=== PATIENT | female | born 1975 | race Caucasian/White ===

== ENCOUNTER → 2017-06-05 15:45 | Outpatient (CLI) | payer MEDICAID ==
[2013-12-07 08:34] VITALS: BMI 34.7
[~2017-06-05 15:45] MED LIST: VOLTAREN25 MG PO
== END | disposition home or self-care (01) ==
LOC: D.CT 15:45
DX: R31.9 Hematuria, unspecified (principal); R10.30 Lower abdominal pain, unspecified

== ENCOUNTER → 2019-04-22 08:00 | Outpatient (CLI) | payer MEDICAID ==
[2013-12-07 08:34] VITALS: BMI 34.7
== END | disposition home or self-care (01) ==
LOC: D.MAMMO 08:00
PROVIDERS: ATTEND Nurse Practitioner Family
DX: Z12.31 Encounter for screening mammogram for malignant neoplasm of breast (principal)

== ENCOUNTER → 2019-05-19 09:00 | Outpatient (CLI) | payer MEDICAID ==
[2013-12-07 08:34] VITALS: BMI 34.7
== END | disposition home or self-care (01) ==
LOC: D.MAMMO 09:00
PROVIDERS: ATTEND Nurse Practitioner Family
DX: R92.8 Other abnormal and inconclusive findings on diagnostic imaging of breast (principal)

== ENCOUNTER → 2019-06-07 07:20 | Outpatient (CLI) | payer MEDICAID ==
[2013-12-07 08:34] VITALS: BMI 34.7
== END | disposition home or self-care (01) ==
LOC: D.US 07:20
PROVIDERS: ATTEND Nurse Practitioner Family
DX: R92.8 Other abnormal and inconclusive findings on diagnostic imaging of breast (principal)

== ENCOUNTER → 2020-11-08 15:56 | Outpatient (CLI) | payer MEDICAID ==
[2013-12-07 08:34] VITALS: BMI 34.7
[2020-11-08 16:30] LABS: BASOPHILS 0.5 % (0-2); EOSINOPHILS 1.8 % (0-7); HEMOGLOBIN 13.1 g/dL (12-16); IMMATURE GRANULOCYTES 0.3 % (0-5); LYMPHOCYTE ABS# 2.85 10x3/uL (1.18-3.74); LYMPHOCYTES 47.1 % (15-50); MCH 29.4 pg (26.0-34.0); MCHC 33.6 g/dL (31.0-37.0); MCV 87.4 fL (80.0-100.0); MEAN PLATELET VOLUME 10.5 fL (7.4-10.4); MONOCYTES 6.4 % (2-11); NEUTROPHIL ABS# 2.65 10x3/uL (1.56-6.13); NEUTROPHILS 43.9 % (40-80); PLATELET COUNT 73 10x3/uL (130-400); RBC 4.46 10x6/uL (4.00-5.40); WBC 6.1 10x3/uL (4.8-10.8)
[2020-11-08 17:11] LABS: % SATURATION 22 % (15-55); IRON 79 ug/dl (35-150); TOTAL IRON BIND CAPACITY 348 ug/dl (260-445); UNSAT IRON BIND CAPACITY 269 ug/dl (150-375)
[2020-11-08 18:01] LABS: PLATELET ESTIMATE DECREASED
== END | disposition home or self-care (01) ==
LOC: D.LAB 15:56
PROVIDERS: ATTEND Internal Medicine Hematology & Oncology
DX: R58 Hemorrhage, not elsewhere classified (principal); D69.49 Other primary thrombocytopenia

== ENCOUNTER 2020-11-13 05:15 | Day surgery (SDC) | payer BC ==
--- NOTE | 2020-11-12 12:42 | NUR ---
CONFIRMED PT APPT FOR 11/13/20 THINNERS: NO NPO: VERBALIZES NOTHING AFTER MIDNIGHT EXCEPT MORNING MEDS WITH SIP OF WATER TYPE INSPECTOR: YES ARRIVAL TIME: 0530
[~2020-11-13] VITALS: Ht 175.3 cm; Wt 104.5 kg
[2020-11-13 05:39] LABS: BASOPHILS 0.3 % (0-2); EOSINOPHILS 2.7 % (0-7); HEMATOCRIT 38.3 % (36.0-48.0); HEMOGLOBIN 12.8 g/dL (12-16); IMMATURE GRANULOCYTES 0.2 % (0-5); LYMPHOCYTE ABS# 2.94 10x3/uL (1.18-3.74); LYMPHOCYTES 49.7 % (15-50); MCH 29.6 pg (26.0-34.0); MCHC 33.4 g/dL (31.0-37.0); MCV 88.5 fL (80.0-100.0); MEAN PLATELET VOLUME 10.2 fL (7.4-10.4); MONOCYTES 7.1 % (2-11); NEUTROPHIL ABS# 2.36 10x3/uL (1.56-6.13); PLATELET COUNT 73 10x3/uL (130-400); RBC 4.33 10x6/uL (4.00-5.40); WBC 5.9 10x3/uL (4.8-10.8)
[2020-11-13 05:50] LABS: ANION GAP 12.8 mmol/L (8-16); CALCIUM 8.4 mg/dL (8.5-10.1); CARBON DIOXIDE 24.1 mmol/L (21.0-32.0); CREATININE - SERUM 1.4 mg/dL (0.6-1.3); POTASSIUM - SERUM 3.9 mmol/L (3.5-5.1)
[2020-11-13 05:55] LABS: APTT 36.6 SECONDS (22.8-39.4); INR 1.06 (0.85-1.17); PROTIME 12.8 SECONDS (11.6-15.0)
[2020-11-13] MEDS ORDERED: NEURONTIN 300300 MG PO (07:10)
[2020-11-13] MEDS ORDERED: KLONOPIN1 MG PO (07:10)
[2020-11-13] MEDS ORDERED: TOPAMAX100 MG PO (07:10)
[2020-11-13] MEDS ORDERED: IBUPROFEN800 MG PO (07:11)
[2020-11-13] MEDS ORDERED: ESTRACE1 MG PO (07:11)
[2020-11-13] MEDS ORDERED: CYCLOBENZAPRINE5 MG PO (07:11)
[2020-11-13 07:12] VITALS: BP 113/68; Ht 175.3 cm; Wt 104.5 kg
--- NOTE | 2020-11-13 11:25 | NUR ---
1050 DRESSED, AWAKE & ALERT. PROVIDED WITH DISCHARGE INFORMATION INCLUDING: MED REC., D/C INSTRUCTIONS FOR POST CT GUIDED BIOPSY, & [facility] D/C INTRUCTIONS. PT VOICED UNDERSTANDING. TO PRIVATE CAR PER WHEELCHAIR BY STAFF. HOME WITH . Sharath HOOD R.N.
== END 2020-11-13 10:50 | disposition home or self-care (01) ==
LOC: D.SP 05:15 → D.US 08:00 → D.CT 09:00 → D.SP 10:50
PROVIDERS: Radiology Diagnostic Radiology; ATTEND Internal Medicine Hematology & Oncology
DX: D69.49 Other primary thrombocytopenia (principal); G43.909 Migraine, unspecified, not intractable, without status migrainosus; Z68.33 Body mass index [BMI] 33.0-33.9, adult; R58 Hemorrhage, not elsewhere classified; B35.1 Tinea unguium

== ENCOUNTER → 2020-11-28 07:32 | Outpatient (CLI) | payer BC ==
[2020-11-13 07:12] VITALS: BMI 34.0
[~2020-11-28 07:32] MED LIST changes: +CYCLOBENZAPRINE5 MG PO; +ESTRACE1 MG PO; +IBUPROFEN800 MG PO; +KLONOPIN1 MG PO; +NEURONTIN 300300 MG PO; +TOPAMAX100 MG PO
[2020-11-28 07:54] LABS: BASOPHILS 0.4 % (0-2); EOSINOPHILS 3.1 % (0-7); HEMATOCRIT 41.2 % (36.0-48.0); HEMOGLOBIN 13.4 g/dL (12-16); IMMATURE GRANULOCYTES 0.6 % (0-5); LYMPHOCYTE ABS# 2.16 10x3/uL (1.18-3.74); LYMPHOCYTES 42.3 % (15-50); MCH 28.8 pg (26.0-34.0); MCHC 32.5 g/dL (31.0-37.0); MCV 88.6 fL (80.0-100.0); MEAN PLATELET VOLUME 11.3 fL (7.4-10.4); MONOCYTES 6.1 % (2-11); NEUTROPHIL ABS# 2.43 10x3/uL (1.56-6.13); NEUTROPHILS 47.5 % (40-80); PLATELET COUNT 81 10x3/uL (130-400); RBC 4.65 10x6/uL (4.00-5.40); RDW 13.1 % (11.5-14.5); WBC 5.1 10x3/uL (4.8-10.8)
[2020-11-28 08:15] LABS: ALBUMIN 3.6 g/dL (3.4-5.0); ANION GAP 16.3 mmol/L (8-16); BILIRUBIN - TOTAL 0.27 mg/dL (0.2-1.3); CARBON DIOXIDE 19.4 mmol/L (21.0-32.0); CREATININE - SERUM 1.4 mg/dL (0.6-1.3); POTASSIUM - SERUM 4.7 mmol/L (3.5-5.1); PROTEIN - SERUM 7.7 g/dL (6.4-8.2)
[2020-11-28 14:09] LABS: PLATELET ESTIMATE DECREASED
[2020-11-28 14:10] LABS: ROULEAUX OCC
== END | disposition home or self-care (01) ==
LOC: D.US 07:32
PROVIDERS: ATTEND Internal Medicine Hematology & Oncology
DX: D69.49 Other primary thrombocytopenia (principal)